=== PATIENT | female | born 1980 | race Caucasian/White ===

== ENCOUNTER 2016-10-29 10:28 | Emergency (ER) | payer OTHER ==
[2016-10-29 10:28] VITALS: BMI 29.4
[2016-10-29 10:35] VITALS: BP 114/65; PULSE 81; RESP 20; TEMP 97.7; O2SAT 98
[2016-10-29] MEDS ORDERED: Sodium Chloride 0.9% 1,000 ML IV STA (11:42)
--- NOTE | 2016-10-29 11:44 | ED PDOC ---
HPI: Abdomen Time Seen by Provider: 10/29/16 10:40 Chief Complaint (Nursing): Abdominal Pain Chief Complaint (Provider): Abdomial pain History Per: Patient History/Exam Limitations: no limitations Onset/Duration Of Symptoms: Days (1) Additional Complaint(s): Patient is a 36 y/o female with no significant past medical history presenting to the emergency department for diffuse abdominal pain with associated nausea and diarrhea since last night. Denies fever, vomiting, or other complaints. PCP: none provided. Past Medical History Reviewed: Historical Data, Nursing Documentation, Vital Signs Vital Signs: Last Vital Signs Temp 97.7 F 10/29/16 10:34 Pulse 81 10/29/16 10:34 Resp 20 10/29/16 10:34 BP 114/65 10/29/16 10:34 Pulse Ox 98 10/29/16 15:43 - Medical History PMH: Gall Bladder Disease - Surgical History Surgical History: Cholecystectomy - Family History Family History: States: Unknown Family Hx - Social History Current smoker - smoking cessation education provided: No Ex-Smoker (has not smoked in the last 12 months): No - Immunization History Hx Tetanus Toxoid Vaccination: No Hx Influenza Vaccination: No Hx Pneumococcal Vaccination: No - Home Medications Home Medications: Ambulatory Orders Medication Instructions Recorded Docusate [Colace] 100 mg PO Q8 PRN 08/10/15 traMADol [Ultram] 25 mg PO Q6 PRN 08/10/15 - Allergies Allergies/Adverse Reactions: Allergies Allergy/AdvReac Type Severity Reaction Status Date / Time acetaminophen [From Percocet] Allergy RASH Verified 03/14/15 23:55 aspirin Allergy ITCHING Verified 08/10/15 10:20 ibuprofen [From Motrin] Allergy RASH Verified 08/10/15 10:05 ketorolac tromethamine Allergy SWELLING Verified 03/14/15 22:17 [From Toradol] oxycodone HCl [From Percocet] Allergy RASH Verified 03/14/15 23:55 Review of Systems ROS Statement: Except As Marked, All Systems Reviewed And Found Negative Constitutional: Negative for: Fever Gastrointestinal: Positive for: Nausea, Abdominal Pain (diffuse), Diarrhea. Negative for: Vomiting Physical Exam - Reviewed Nursing Documentation Reviewed: Yes Vital Signs Reviewed: Yes - Physical Exam Appears: Positive for: Non-toxic, No Acute Distress Head Exam: Positive for: ATRAUMATIC, NORMAL INSPECTION, NORMOCEPHALIC Skin: Positive for: Normal Color, Warm, Dry Eye Exam: Positive for: Normal appearance, PERRL Neck: Positive for: Normal, Painless ROM, Supple Cardiovascular/Chest: Positive for: Regular Rate, Rhythm. Negative for: Murmur Respiratory: Positive for: Normal Breath Sounds. Negative for: Accessory Muscle Use, Respiratory Distress Gastrointestinal/Abdominal: Positive for: Tenderness (diffuse) Extremity: Positive for: Normal ROM. Negative for: Pedal Edema Neurologic/Psych: Positive for: Alert, Oriented (x3) - Laboratory Results Result Diagrams: 10/29/16 12:00 10/29/16 12:00 - ECG O2 Sat by Pulse Oximetry: 98 (RA) Pulse Ox Interpretation: Normal Medical Decision Making Medical Decision Making: Time: 11:43 Initial impression: Diffuse abdominal pain Initial plan: Labs Pepcid Normal Saline 1 L IV Zofran 4 mg Reevaluation Time: 14:31 --Potassium to be replenished. Patient reports feeling better, and is tolerating PO intake. Clinical Impression: Gastroenteritis, abdominal cramps Time: 15:30 --Patient is medically stable and will be discharged home. --Counseling was provided and all questions were answered regarding diagnosis and need for follow up with PMD in 1-2 days. There is agreement to discharge plan. Return if symptoms persist or worsen. Scribe Attestation: Documented by Jenni Coello & Luna Britton, acting as a scribe for Jony Mcconnell MD. Provider Scribe Attestation: All medical record entries made by the Scribe were at my direction and personally dictated by me. I have reviewed the chart and agree that the record accurately reflects my personal performance of the history, physical exam, medical decision making, and the department course for this patient. I have also personally directed, reviewed, and agree with the discharge instructions and disposition. Disposition - Clinical Impression Clinical Impression: Abdominal cramps, Gastroenteritis - Patient ED Disposition Is Patient to be Admitted: No Counseled Patient/Family Regarding: Diagnosis, Need For Followup - Disposition Disposition: Routine/Home Disposition Time: 15:30 Condition: IMPROVED Additional Instructions: follow up with your primary doctor in 1-2 days return to the ED with any worsening or concerning symptoms Instructions: Gastroenteritis (ED) Forms: [employer] (Tajik)
[2016-10-29 12:12] LABS: BASO % 0.1 % (0.0-2.0); EOS # 0.3 K/uL (0.0-0.7); EOS % 2.4 % (0.0-4.0); HEMATOCRIT 40.7 % (34.0-47.0); LYMPH # 2.6 K/uL (1.0-4.3); LYMPH % 23.5 % (20.0-40.0); MEAN CELL VOLUME 87.9 fl (81.0-99.0); MEAN CORPUSCULAR HEMOGLOBIN 29.4 pg (27.0-31.0); MEAN CORPUSCULAR HGB CONC 33.5 g/dL (33.0-37.0); MEAN PLATELET VOLUME 8.6 fl (7.2-11.7); MONO # 0.6 K/uL (0.0-0.8); MONO % 4.9 % (0.0-10.0); NEUT # 7.8 K/uL (1.8-7.0); NEUT % 69.1 % (50.0-75.0); NRBC % 0.1 % (0.0-0.0); RED CELL DISTRIBUTION WIDTH 14.9 % (11.5-14.5); WHITE BLOOD COUNT 11.3 K/uL (4.8-10.8)
[2016-10-29 12:19] LABS: ALB/GLOB RATIO 1.3 (1.0-2.1); ALKALINE PHOSPHATASE 47 U/L (38-126); ALT/SGPT 50 U/L (9-52); AST/SGOT 27 U/L (14-36); BILIRUBIN,TOTAL 0.3 mg/dl (0.2-1.3); BLOOD UREA NITROGEN 11 mg/dl (7-17); CALCIUM 8.8 mg/dL (8.4-10.2); CARBON DIOXIDE 26 mmol/L (22-30); CHLORIDE 105 mmol/L (98-107); GFR AFRICAN-AMERICAN > 60; GLUCOSE,RANDOM 99 mg/dL (65-105); LIPASE 127 U/L (23-300); SODIUM 143 mmol/l (132-148); TOTAL PROTEIN 6.5 G/DL (6.3-8.2)
[2016-10-29 12:22] LABS: POTASSIUM 3.4 MMOL/L (3.6-5.0)
[2016-10-29] MEDS ORDERED: Potassium Chloride 20 mEq ER Tab PO ONE ×2 (14:31→15:36)
== END 2016-10-29 15:42 | disposition home or self-care (01) ==
LOC: H.ER 10:28
DX: K52.9 Noninfective gastroenteritis and colitis, unspecified (principal)
CPT/HCPCS: 80053; 81025; 83690; 84702; 85025; 96374; 99283; J2405; J7040

== ENCOUNTER 2017-11-05 08:51 | Emergency (ER) | payer OTHER ==
[2017-11-05 08:51] VITALS: BMI 29.4
[2017-11-05 08:55] VITALS: O2SAT 98
--- NOTE | 2017-11-05 09:40 | ED PDOC ---
HPI: Back Time Seen by Provider: 11/05/17 09:08 Chief Complaint (Nursing): Back Pain Chief Complaint (Provider): right lower back pain History Per: Patient History/Exam Limitations: no limitations Onset/Duration Of Symptoms: Days (x3 months) Current Symptoms Are (Timing): Still Present Associated Symptoms: None Additional Complaint(s): Lisset Heredia is a 37 year old female, with no significant past medical history, who presents to the emergency department complaining of right lower back pain onset for x3 months. Patient states she went to clinic x1 month ago and was advised to get an x-ray. She denies any fever, chills, cough, congestion , nausea, vomit, diarrhea, bladder or bowel incontinence, urinary symptoms, chest pain, shortness of breath, weakness, numbness or tingling. No further medical complaints. PMD: Clinic. Past Medical History Reviewed: Historical Data, Nursing Documentation, Vital Signs Vital Signs: Last Vital Signs Temp 98.7 F 11/05/17 08:54 Pulse 84 11/05/17 08:54 Resp 18 11/05/17 08:54 BP 121/72 11/05/17 08:54 Pulse Ox 98 11/05/17 08:54 - Medical History PMH: Gall Bladder Disease - Surgical History Surgical History: Cholecystectomy - Family History Family History: States: Unknown Family Hx - Immunization History Hx Tetanus Toxoid Vaccination: No Hx Influenza Vaccination: No Hx Pneumococcal Vaccination: No - Home Medications Home Medications: Ambulatory Orders Medication Instructions Recorded Docusate [Colace] 100 mg PO Q8 PRN 08/10/15 traMADol [Ultram] 25 mg PO Q6 PRN 08/10/15 - Allergies Allergies/Adverse Reactions: Allergies Allergy/AdvReac Type Severity Reaction Status Date / Time acetaminophen [From Percocet] Allergy RASH Verified 03/14/15 23:55 aspirin Allergy ITCHING Verified 08/10/15 10:20 ibuprofen [From Motrin] Allergy RASH Verified 08/10/15 10:05 ketorolac tromethamine Allergy SWELLING Verified 03/14/15 22:17 [From Toradol] methocarbamol Allergy SWELLING Verified 11/05/17 09:13 oxycodone HCl [From Percocet] Allergy RASH Verified 03/14/15 23:55 Review of Systems Constitutional: Negative for: Fever, Chills ENT: Negative for: Nose Congestion Cardiovascular: Negative for: Chest Pain Respiratory: Negative for: Cough, Shortness of Breath Gastrointestinal: Negative for: Nausea, Vomiting, Abdominal Pain, Diarrhea, Constipation Genitourinary Female: Negative for: Dysuria, Frequency, Incontinence Musculoskeletal: Positive for: Back Pain (right lower) Neurological: Negative for: Weakness, Numbness (tingling), Headache, Dizziness Physical Exam - Reviewed Nursing Documentation Reviewed: Yes Vital Signs Reviewed: Yes - Physical Exam Appears: Positive for: No Acute Distress Head Exam: Positive for: ATRAUMATIC, NORMOCEPHALIC Skin: Positive for: Normal Color, Warm, Dry Eye Exam: Positive for: Normal appearance, EOMI, PERRL Neck: Positive for: Painless ROM Cardiovascular/Chest: Positive for: Regular Rate, Rhythm. Negative for: Murmur Respiratory: Positive for: Normal Breath Sounds. Negative for: Respiratory Distress Gastrointestinal/Abdominal: Positive for: Normal Exam, Soft. Negative for: Tenderness, Guarding, Rebound Back: Positive for: Other (Positive right straight leg raise test at 60). Negative for: Normal Inspection (tender mild right lower back), L CVA Tenderness , R CVA Tenderness Extremity: Positive for: Normal ROM (upper and lower extremities). Negative for : Deformity, Swelling Neurologic/Psych: Positive for: Alert, Oriented. Negative for: Motor/Sensory Deficits - ECG O2 Sat by Pulse Oximetry: 98 (RA) Pulse Ox Interpretation: Normal - Radiology X-Ray: Interpreted by Me, Viewed By Me X-Ray Interpretation: No Acute Disease - Progress ED Course And Treament: 1052: Stable. AAOx3. Pain free. Tolerated PO. Fu with pcp. Medical Decision Making Medical Decision Making: Time: 09:08 Initial Impression: back pain Initial Plan: --Urine --Lumbar Spine Complete [RAD] --Tylenol 325 mg tab 650 mg PO --Reevaluation ----- Scribe Attestation: Documented by Marcus Lewis, acting as a scribe for Shaka Peterson MD. Provider Scribe Attestation: All medical record entries made by the Scribe were at my direction and personally dictated by me. I have reviewed the chart and agree that the record accurately reflects my personal performance of the history, physical exam, medical decision making, and the department course for this patient. I have also personally directed, reviewed, and agree with the discharge instructions and disposition. Disposition - Clinical Impression Clinical Impression: Low back pain - Patient ED Disposition Is Patient to be Admitted: No Counseled Patient/Family Regarding: Studies Performed, Diagnosis, Need For Followup - Disposition Referrals: [facility] [Outside] - 11/06/17 Disposition: Routine/Home Disposition Time: 10:53 Condition: STABLE Additional Instructions: Return if not better in 3 days. Instructions: Low Back Pain in Adults Print Language: SAMI
[2017-11-05 12:06] VITALS: BP 106/53; PULSE 76; RESP 16; TEMP 98.3
--- NOTE | 2017-11-05 14:02 | RAD ---
Date of service: 11/05/2017 PROCEDURE: Radiographs of the Lumbar Spine. HISTORY: Back pain COMPARISON: No prior. FINDINGS: BONES: There is normal alignment of the lumbar vertebral bodies. There is normal lumbar lordosis. There is no acute fracture, spondylolysis or spondylolisthesis. Bone mineralization is normal. DISC SPACES: The disc heights are maintained. OTHER FINDINGS: There are no pathologic soft tissue calcifications. Both sacroiliac joints are normal. IMPRESSION: No acute fracture or spondylolysis.
== END 2017-11-05 11:54 | disposition home or self-care (01) ==
LOC: H.ER 08:51
DX: M54.5 Low back pain (principal); Z88.5 Allergy status to narcotic agent; Z88.6 Allergy status to analgesic agent

== ENCOUNTER 2018-05-21 20:51 | Emergency (ER) | payer SELFPAY ==
[2018-05-21 20:52] VITALS: BMI 29.4
--- NOTE | 2018-05-21 21:49 | ED PDOC ---
HPI: CCC, URI, Sore Throat Time Seen by Provider: 05/21/18 21:14 Chief Complaint (Nursing): ENT Problem Chief Complaint (Provider): ENT Problem History Per: Patient History/Exam Limitations: no limitations Onset/Duration Of Symptoms: Days (x2) Current Symptoms Are (Timing): Still Present Additional Complaint(s): Patient is a 38 y/o female with a PMHx of gallbladder disease who presents to the ED for evaluation of a sore throat for the past two days. Patient also complains body aches and chills. Patient reports pain when swallowing but is able to tolerate liquids. She has been taking Tylenol, last dose this morning. Patient denies difficulty breathing and drooling, cough, chest pain. PCP: Dr. Porter Decker Past Medical History Reviewed: Historical Data, Nursing Documentation, Vital Signs Vital Signs: Last Vital Signs Temp 100.7 F H 05/21/18 21:05 Pulse 99 H 05/21/18 21:05 Resp 16 05/21/18 21:05 BP 116/78 05/21/18 21:05 Pulse Ox 97 05/21/18 21:05 - Medical History PMH: Gall Bladder Disease - Surgical History Surgical History: Cholecystectomy - Family History Family History: States: Unknown Family Hx - Immunization History Hx Tetanus Toxoid Vaccination: No Hx Influenza Vaccination: No Hx Pneumococcal Vaccination: No - Home Medications Home Medications: Ambulatory Orders Medication Instructions Recorded Docusate [Colace] 100 mg PO Q8 PRN 08/10/15 traMADol [Ultram] 25 mg PO Q6 PRN 08/10/15 Acetaminophen [8 Hour] 650 mg PO Q6 PRN #20 tablet.er 05/21/18 Amoxicillin 500 mg PO BID 10 Days #20 tablet 05/21/18 Lidocaine 2% Viscous 15 ml MM Q6 PRN #1 bottle 05/21/18 - Allergies Allergies/Adverse Reactions: Allergies Allergy/AdvReac Type Severity Reaction Status Date / Time aspirin Allergy ITCHING Verified 08/10/15 10:20 ibuprofen [From Motrin] Allergy RASH Verified 08/10/15 10:05 ketorolac tromethamine Allergy SWELLING Verified 03/14/15 22:17 [From Toradol] methocarbamol Allergy SWELLING Verified 11/05/17 09:13 oxycodone HCl [From Percocet] Allergy RASH Verified 03/14/15 23:55 Review of Systems ROS Statement: Except As Marked, All Systems Reviewed And Found Negative Constitutional: Positive for: Chills, Other (body aches) ENT: Positive for: Throat Pain (soreness). Negative for: Other (drooling) Respiratory: Negative for: Other (difficulty breathing) Physical Exam - Reviewed Nursing Documentation Reviewed: Yes Vital Signs Reviewed: Yes - Physical Exam Comments: GENERAL APPEARANCE: Patient is awake, alert, oriented x 3, in mild obvious d iscomfort. SKIN: Warm, dry; (-) cyanosis, (-) rash. (-) Decubitus Ulcer EYES: (-) conjunctival pallor, (-) scleral icterus, (-) conjunctival hemorrhage. ENMT: Mucous membranes _moist. TMs: (-) erythema. Airway patent: (-) stridor. Tonsils: enlarged, (+) erythematous, (+) exudates. (-) uvula deviation, (-) trismus (-) airway obstruction NECK: (-) tenderness, (-) stiffness, (-) meningismus, (+) bilateral tender anterior cervical lymphadenopathy. ABDOMEN AND GI: Soft; (-) tenderness, (-) guarding; (-) organomegaly; (-) mass; (-) CVA tenderness. EXTREMITIES: (-) deformity; (-) cellulitis, (-) lymphangitis; (-) subungual hemorrhage; (-) edema. NEURO AND PSYCH: Mental status as above; (-) focal findings. - ECG O2 Sat by Pulse Oximetry: 97 (RA) Pulse Ox Interpretation: Normal Medical Decision Making Medical Decision Making: Time: 2127 Impression: Strep Plan: Amoxil 500 mg PO Lidocaine 2% Viscous 15 ml PO Tylenol 650 mg PO pt with fever, exudate, lymphadenopathy and no cough will treat for strep without test discussed results, diagnosis, treatment, return precautions and f/u with pt who is understanding, in agreement and stable for dc Scribe Attestation: Documented by Oswaldo Burton, acting as a scribe for Frandy Encarnacion PA-C Provider Scribe Attestation: All medical record entries made by the Scribe were at my direction and personally dictated by me. I have reviewed the chart and agree that the record accurately reflects my personal performance of the history, physical exam, medical decision making, and the department course for this patient. I have also personally directed, reviewed, and agree with the discharge instructions and disposition. Disposition - Clinical Impression Clinical Impression: Strep pharyngitis - Patient ED Disposition Is Patient to be Admitted: No Counseled Patient/Family Regarding: Studies Performed, Diagnosis, Need For Followup, Rx Given - Disposition Referrals: [facility] [Outside] Disposition: Routine/Home Disposition Time: 22:25 Condition: IMPROVED Additional Instructions: Take antibiotics as prescribed until finished. take medications as prescribed for symptoms. Thank you for letting us take care of you today. You were treated for strep throat. The emergency medical care you received today was directed at your acute symptoms. If you were prescribed any medication, please fill it and take as directed. It may take several days for your symptoms to resolve. Return to the Emergency Department if your symptoms worsen, do not improve, or if you have any other problems. Please contact your doctor in 2 days for re-evaluation and follow up / or call one of the physicians/clinics you have been referred to that are listed on the P atient Visit Information form that is included in your discharge packet. Bring any paperwork you were given at discharge with you along with any medications you are taking to your follow up visit. Our treatment cannot replace ongoing medical care by a primary care provider (PCP) outside of the emergency department. Prescriptions: Acetaminophen [8 Hour] 650 mg PO Q6 PRN #20 tablet.er PRN Reason: Fever >100.4 F Amoxicillin 500 mg PO BID 10 Days #20 tablet Lidocaine 2% Viscous 15 ml MM Q6 PRN #1 bottle PRN Reason: Pain, Moderate (4-7) Instructions: Strep Throat (DC) Forms: [employer] (Malian), [facility] ED School/Work Excuse Print Language: MACEDONIAN - POA Present On Arrival: None
[2018-05-21 22:47] VITALS: BP 123/72; PULSE 90; RESP 18; TEMP 99
[2018-05-22 00:06] VITALS: O2SAT 97
== END 2018-05-21 22:46 | disposition home or self-care (01) ==
LOC: H.ER 20:51
DX: J02.0 Streptococcal pharyngitis (principal)